=== PATIENT | female | born 1975 | race Caucasian/White ===

== ENCOUNTER → 2017-07-10 | Outpatient (CLI) | payer OTHER ==
--- NOTE | 2017-07-10 15:49 | RAD ---
DATE: 07/10/2017 EXAM: DIGITAL DIAGNOSTIC RT HISTORY: Abnormality seen on outside mammogram COMPARISON: Outside mammogram from 05/28/2017 This study was interpreted with the benefit of Computerized Aided Detection (CAD). FINDINGS: MLO and CC spot compression views were obtained of the right breast. Breast Density: DENSE The breast Parenchyma is dense, which could reduce the sensitivity of mammography. Breast parenchyma level density D.. The skin and nipples are within normal limits. The spot compression images demonstrate 2 round jessie are seen in the upper outer quadrant of the right breast with well-circumscribed margin and central lucency. IMPRESSION: 2 round masses in the right breast as described above. These are most likely intraparenchymal lymph node. BI-RADS CATEGORY: 2 BENIGN FINDING(S) RECOMMENDED FOLLOW-UP: 12M 12 MONTH FOLLOW-UP PQRS compliance statement: Patient information was entered into a reminder system with a target due date 07/10/2018 for the next mammogram. Mammography is a sensitive method for finding small breast cancers, but it does not detect them all and is not a substitute for careful clinical examination. A negative mammogram does not negate a clinically suspicious finding and should not result in delay in biopsying a clinically suspicious abnormality. "Our facility is accredited by the [employer] Mammography Program."
--- NOTE | 2017-07-10 15:49 | RAD ---
Ultrasound right breast Indication: Abnormality seen on outside screening mammogram Technique: Grayscale and color Doppler ultrasound images of the upper outer quadrant of the right breast obtained. Comparison: Similar diagnostic mammogram Findings: There is a 0.5 x 0.4 x 0.5 cm lymph node at 10:00 position approximately 7 cm from the nipple. There is 0.6 x 0.5 x 0.3 cm lymph node at 10:00 position approximately 9 cm from the nipple. These corresponds to nodular densities seen on the outside screening mammogram and also on the same day diagnostic mammogram. No other solid or cystic lesion seen in the interrogated right upper outer quadrant. The skin is within normal limits. Impression: Diffusely seen nodular densities on the outside screening mammogram in the right breast are compatible with interparenchymal lymph nodes. BI-RADS 2: Benign findings.
== END | disposition home or self-care (01) ==
LOC: MAMMO 06-21 10:04
PROVIDERS: ATTEND Nurse Practitioner Family
DX: N63.11 Unspecified lump in the right breast, upper outer quadrant (principal)
CPT/HCPCS: 76641; G0206; 77065

== ENCOUNTER 2018-05-22 06:25 | Emergency (ER) | payer OTHER ==
[~2018-05-22] VITALS: Ht 162.6 cm; Wt 75.3 kg
--- NOTE | 2018-05-22 06:36 | PHYS DOC ---
Past History Past Medical History: No Pertinent History Past Surgical History: Hysterectomy (BSO), Tonsillectomy Smoking: Non-smoker Adult General Chief Complaint Chief Complaint: FLANK PAIN HPI HPI Patient is a pleasant 42-year-old female presents to the emergency performed evaluation of sudden onset right flank pain, radiating to the right groin, which began at about 5:30 AM this morning. She has had some nausea but no vomiting. She has not noticed any hematuria or dysuria. She has not had any fevers or chills. The pain is described as an intense achy pain. There are no alleviating or exacerbating factors to the patient's symptoms. Review of Systems Review of Systems Constitutional: Denies fever or chills [] Eyes: Denies change in visual acuity, redness, or eye pain [] HENT: Denies nasal congestion or sore throat [] Respiratory: Denies cough or shortness of breath [] Cardiovascular:The patient denies any shortness of breath, chest pain, palpitations, or orthopnea, [] GI: Denies vomiting, bloody stools or diarrhea [] : Denies dysuria or hematuria [] Musculoskeletal: Denies back pain or joint pain, other than right flank pain [] Integument: Denies rash or skin lesions [] Neurologic: Denies headache, focal weakness or sensory changes [] Endocrine: Denies polyuria or polydipsia [] All other systems were reviewed and found to be within normal limits, except as documented in this note. Current Medications Current Medications Current Medications Medications (Trade) Dose Ordered Sig/Tra Start Time Stop Time Status Last Admin Dose Admin Ondansetron HCl (Zofran) 4 mg 1X ONCE 05/22/18 06:45 05/22/18 06:46 UNV Sodium Chloride 1,000 ml @ 1,000 mls/hr Q1H 05/22/18 06:31 05/22/18 07:30 UNV Allergies Allergies Allergies Coded Allergies Type Severity Reaction Last Updated Verified latex Allergy Intermediate 05/22/18 Yes Physical Exam Physical Exam PHYSICAL EXAM: CONSTITUTIONAL: Well developed, well nourished HEAD: normocephalic, atraumatic EENT: PERRL, EOMI. Conjunctivae normal color, sclerae non-icteric; moist mucous membranes. NECK: Supple, non-tender; no meningismus. LUNGS: Lungs CTA, breathing even and unlabored. Normal air movement. HEART: Regular rate and rhythm, no murmur CHEST: No deformity; non-tender ABDOMEN: The abdomen is soft, there is mild diffuse tenderness to palpation in the right lower abdomen, without rebound or guarding, the remainder the abdomen is soft and non-tender, no masses or bruits. EXTREM: Normal ROM; no deformity, no calf tenderness. Normal pulses palpable in all extremities. There is no pedal edema. SKIN: No rash; no diaphoresis NEURO: Alert; normal speech and cognition; CN's grossly intact; strength grossly intact without focal deficit. BACK: There is moderate right-sided CVA TTP.There is no bony tenderness to palpation of the thoracic or lumbar spine. Current Patient Data Lab Results Laboratory Tests Test 05/22/18 06:23 05/22/18 06:25 Urine Collection Type Unknown Urine Color Yellow Urine Clarity Hazy Urine pH 5.0 Urine Specific [place] 1.025 Urine Protein Neg Urine Glucose (UA) Neg mg/dL Urine Ketones (Stick) Neg mg/dL Urine Blood Neg Urine Nitrite Neg Urine Bilirubin Neg Urine Urobilinogen Dipstick 0.2 mg/dL Urine Leukocyte Esterase Neg Urine RBC 0 /HPF Urine WBC Rare /HPF Urine Squamous Epithelial Cells Many /LPF Urine Bacteria Many /HPF Urine Mucus Slight /LPF White Blood Count 6.4 x10^3/uL Red Blood Count 4.66 x10^6/uL Hemoglobin 13.9 g/dL Hematocrit 39.8 % Mean Corpuscular Volume 85 fL Mean Corpuscular Hemoglobin 30 pg Mean Corpuscular Hemoglobin Concent 35 g/dL Red Cell Distribution Width 12.4 % Platelet Count 230 x10^3/uL Neutrophils (%) (Auto) 45 % Lymphocytes (%) (Auto) 46 % Monocytes (%) (Auto) 8 % Eosinophils (%) (Auto) 1 % Basophils (%) (Auto) 1 % Neutrophils # (Auto) 2.8 x10^3uL Lymphocytes # (Auto) 2.9 x10^3/uL Monocytes # (Auto) 0.5 x10^3/uL Eosinophils # (Auto) 0.1 x10^3/uL Basophils # (Auto) 0.1 x10^3/uL Sodium Level 139 mmol/L Potassium Level 3.4 mmol/L Chloride Level 104 mmol/L Carbon Dioxide Level 27 mmol/L Anion Gap 8 Blood Urea Nitrogen 14 mg/dL Creatinine 0.9 mg/dL Estimated GFR (Cockcroft-Gault) 68.7 BUN/Creatinine Ratio 16 Glucose Level 140 mg/dL Calcium Level 8.3 mg/dL Total Bilirubin 0.3 mg/dL Aspartate Amino Transf (AST/SGOT) 19 U/L Alanine Aminotransferase (ALT/SGPT) 29 U/L Alkaline Phosphatase 80 U/L Total Protein 7.0 g/dL Albumin 3.3 g/dL Albumin/Globulin Ratio 0.9 Lipase 169 U/L Current Medications Medications (Trade) Dose Ordered Sig/Tra Route PRN Reason Start Time Stop Time Status Last Admin Dose Admin Sodium Chloride 1,000 ml @ 1,000 mls/hr Q1H IV 05/22/18 07:00 05/22/18 07:59 05/22/18 06:42 Ondansetron HCl (Zofran) 4 mg 1X ONCE IV 05/22/18 07:00 05/22/18 07:01 DC 05/22/18 06:40 Ketorolac Tromethamine (Toradol 30mg Vial) 30 mg 1X ONCE IV 05/22/18 07:00 05/22/18 07:01 DC 05/22/18 06:39 Hydromorphone HCl (Dilaudid) 1 mg 1X ONCE IV 05/22/18 07:00 05/22/18 07:01 DC 05/22/18 06:41 EKG EKG [] Radiology/Procedures Radiology/Procedures [PROCEDURE: CT ABDOMEN PELVIS WO CONTRAST Examination: CT ABDOMEN PELVIS WO CONTRAST History: SEVERE RIGHT FLANK PAIN ONSET THIS MORNING Comparison/Correlation: None Findings: Axial images of the abdomen and pelvis were obtained without contrast. Sagittal and coronal reformatted images were provided. Visualized lung bases are clear. Diffuse fatty infiltration of the liver is present. Spleen is normal. Pancreas is unremarkable. Right hydronephrosis and hydroureter are identified measuring up to 0.4 cm diameter. Left collecting system is unremarkable. No enlarged abdominal or pelvic lymph nodes. No ascites or pelvic free fluid. Moderate quantity of stool is present in the colon. Urinary bladder is mostly decompressed. Bilateral L5 pars interarticularis fractures are present and chronic in appearance. No malalignment. Impression: There is a 0.4 cm diameter ureterovesical junction calculus with associated obstruction. Fatty infiltration liver. Bilateral pars interarticularis fractures are chronic.] Course & Med Decision Making Course & Med Decision Making Pertinent Labs and Imaging studies reviewed. (See chart for details) [8:00 AM: The patient's condition remains stable. Her pain is improved at this time. I discussed test results with the patient, the need for close follow-up, and return precautions.] Shahriar Disclaimer Dragon Disclaimer This electronic medical record was generated, in whole or in part, using a voice recognition dictation system. Departure Departure: Impression: Primary Impression: Kidney stone Disposition: 01 HOME, SELF-CARE Condition: STABLE Referrals: NOBLE RIDDLE DO (PCP) Patient Instructions: Diet for Kidney Stones, Kidney Stones Additional Instructions: Ibuprofen 400-600 mg every 6 hours as needed for pain. Use the prescribed pain medication as needed for pain not controlled by ibuprofen.The prescribed medication may cause drowsiness. Use caution while taking. Strain your urine. If you find a kidney stone, bring it to your urology follow- up appointment, as this may help the urologist to determine what is causing the stone what you might be able to do to prevent this from happening in the future. Call [phone] to schedule a follow-up appointment with urology. Scripts Ondansetron (ZOFRAN ODT) 4 Mg Tab.rapdis 1 TAB SL Q4H PRN for NAUSEA, #15 TAB Prov: HALINA AGUIRRE MD 05/22/18 Oxycodone Hcl/Acetaminophen (PERCOCET 5-325 MG TABLET) 1 Each Tablet 1-2 TAB PO Q4-6HRS, #20 TAB Prov: HALINA AGUIRRE MD 05/22/18 Tamsulosin Hcl (FLOMAX) 0.4 Mg Cap.er.24h 1 CAP PO DAILY, #20 CAP 0 Refills Prov: HALINA AGUIRRE MD 05/22/18 HALINA AGUIRRE MD May 22, 2018 06:36
[2018-05-22 06:44] LABS: BASO # 0.1 x10^3/uL (0.0-0.2); BASO % 1 % (0-3); EOS # 0.1 x10^3/uL (0.0-0.7); EOS % 1 % (0-3); HEMATOCRIT 39.8 % (36.0-47.0); HEMOGLOBIN 13.9 g/dL (12.0-15.5); LYMPH # 2.9 x10^3/uL (1.0-4.8); LYMPH % 46 % (24-48); MEAN CORPUSCULAR HEMOGLOBIN 30 pg (25-35); MEAN CORPUSCULAR HGB CONC 35 g/dL (31-37); MEAN CORPUSCULAR VOLUME 85 fL (79-100); MONO # 0.5 x10^3/uL (0.0-1.1); MONO % 8 % (0-9); NEUT # 2.8 x10^3uL (1.8-7.7); NEUT % 45 % (31-73); PLATELET COUNT 230 x10^3/uL (140-400); RED BLOOD COUNT 4.66 x10^6/uL (3.50-5.40); RED CELL DISTRIBUTION WIDTH 12.4 % (11.5-14.5); WHITE BLOOD COUNT 6.4 x10^3/uL (4.0-11.0)
[2018-05-22 06:53] LABS: BILIRUBIN,URINE NEG (NEG); CLARITY,URINE HAZY; COLOR,URINE YELLOW; GLUCOSE,URINE NEG (NEG)
[2018-05-22 06:54] LABS: BACTERIA,URINE MANY /HPF (0-FEW); NITRITE,URINE NEG (NEG); RBC,URINE 0 /HPF (0-2); SQUAMOUS EPITHELIAL CELL,UR MANY /LPF; UROBILINOGEN,URINE 0.2 mg/dL (0.2 mg/dL); WBC,URINE RARE /HPF (0-4)
[2018-05-22 06:55] LABS: ALBUMIN 3.3 g/dL (3.4-5.0); ALBUMIN/GLOBULIN RATIO 0.9 (1.0-1.7); CALCIUM 8.3 mg/dL (8.5-10.1); CREATININE 0.9 mg/dL (0.6-1.0); GFR 68.7; POTASSIUM 3.4 mmol/L (3.5-5.1); TOTAL BILIRUBIN 0.3 mg/dL (0.2-1.0)
[2018-05-22] MEDS ORDERED: ONDANSETRON PF 4 MG/2 ML VIAL. IV ONE (07:00)
[2018-05-22] MEDS ORDERED: IV NORMAL SALINE 1,000ML 1,000 ML IV SCH (07:00)
[2018-05-22] MEDS ORDERED: HYDROmorphone PF 1 MG/ML DISP.SYRIN IV ONE ×2 (07:00→08:10)
[2018-05-22] MEDS ORDERED: KETOROLAC 30 MG/ML VIAL. IV ONE (07:00)
--- NOTE | 2018-05-22 07:43 | RAD ---
Examination: CT ABDOMEN PELVIS WO CONTRAST History: SEVERE RIGHT FLANK PAIN ONSET THIS MORNING Comparison/Correlation: None Findings: Axial images of the abdomen and pelvis were obtained without contrast. Sagittal and coronal reformatted images were provided. Visualized lung bases are clear. Diffuse fatty infiltration of the liver is present. Spleen is normal. Pancreas is unremarkable. Right hydronephrosis and hydroureter are identified measuring up to 0.4 cm diameter. Left collecting system is unremarkable. No enlarged abdominal or pelvic lymph nodes. No ascites or pelvic free fluid. Moderate quantity of stool is present in the colon. Urinary bladder is mostly decompressed. Bilateral L5 pars interarticularis fractures are present and chronic in appearance. No malalignment. Impression: There is a 0.4 cm diameter ureterovesical junction calculus with associated obstruction. Fatty infiltration liver. Bilateral pars interarticularis fractures are chronic. Electronically signed by: Chacho Kc MD (05/22/2018 7:40 AM) [facility]
[2018-05-22] MEDS ORDERED: OXYC-323 PO (08:00)
[2018-05-22] MEDS ORDERED: TAMS0.4C97 PO (08:00)
[2018-05-22] MEDS ORDERED: ONDA4TAB10 SL (08:00)
[2018-05-22] MEDS ORDERED: TAMSULOSIN 0.4 MG CAP.ER.24H. PO ONE (08:30)
[2018-05-22 09:15] VITALS: BP 108/72
== END 2018-05-22 09:25 | disposition home or self-care (01) ==
LOC: ER 06:25
DX: N13.2 Hydronephrosis with renal and ureteral calculous obstruction (principal); K76.0 Fatty (change of) liver, not elsewhere classified; Z90.710 Acquired absence of both cervix and uterus; Z91.040 Latex allergy status
CPT/HCPCS: 36415; 74176; 80053; 81001; 83690; 85025; 87086; 96374; 96375; 96376; 99285; J1170; J1885; J2405; J7030

== ENCOUNTER 2018-10-05 11:16 | Emergency (ER) | payer OTHER ==
[~2018-10-05] VITALS: Ht 162.6 cm; Wt 74.7 kg
[2018-10-05 11:16] VITALS: BP 131/89
[~2018-10-05 11:16] MED LIST: ONDA4TAB10 SL; OXYC1TAB15 PO; TAMS0.4C97 PO
[2018-10-05] MEDS ORDERED: PRED-220 PO (12:49)
[2018-10-05] MEDS ORDERED: CYCL-331 PO (12:49)
--- NOTE | 2018-10-05 12:50 | PHYS DOC ---
Past History Past Medical History: Kidney Stones Past Surgical History: Hysterectomy, Tonsillectomy Smoking: Non-smoker Alcohol Use: None Drug Use: None Adult General Chief Complaint Chief Complaint: BACK PAIN OR INJURY HPI HPI 42-year-old female presents with left shoulder pain. 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 It hurt her the rest of the shift that she thought it would just get better on its own. The patient had some pain is morning but thought she could go to work. She then additionally fell in the parking lot at work and leeanne her left shoulder again. She did not land on the shoulder. She was working today pushing around the cart the patient just became too difficult and she left work to come here for evaluation. The patient's pain is mostly in the left trapezius and the supraspinatus distribution. Patient did take 500 mg naproxen at home with minimal relief. She denies any other injuries or complaints. Review of Systems Review of Systems Constitutional: Denies fever or chills [] Eyes: Denies change in visual acuity, redness, or eye pain [] HENT: Denies nasal congestion or sore throat [] Respiratory: Denies cough or shortness of breath [] Cardiovascular: No additional information not addressed in HPI [] GI: Denies abdominal pain, nausea, vomiting, bloody stools or diarrhea [] : Denies dysuria or hematuria [] Musculoskeletal: Shoulder pain[] Integument: Denies rash or skin lesions [] Neurologic: Denies headache, focal weakness or sensory changes [] Endocrine: Denies polyuria or polydipsia [] All other systems were reviewed and found to be within normal limits, except as documented in this note. Allergies Allergies Allergies Coded Allergies Type Severity Reaction Last Updated Verified latex Allergy Intermediate 05/22/18 Yes Physical Exam Physical Exam Constitutional: Well developed, well nourished, no acute distress, non-toxic appearance. [] HENT: Normocephalic, atraumatic, bilateral external ears normal, oropharynx moist, no oral exudates, nose normal. [] Eyes: PERRLA, EOMI, conjunctiva normal, no discharge. [] Neck: Normal range of motion, no tenderness, supple, no stridor. [] Cardiovascular:Heart rate regular rhythm, no murmur [] Lungs & Thorax: Bilateral breath sounds clear to auscultation [] Abdomen: Bowel sounds normal, soft, no tenderness, no masses, no pulsatile masses. [] Skin: Warm, dry, no erythema, no rash. [] Back: No tenderness, no CVA tenderness. [] Extremities: Patient has tenderness along the distribution of the left trapezius. Shoulder range of motion is normal though slightly guarded. No deformity or dislocation seen.[] Neurologic: Alert and oriented X 3, normal motor function, normal sensory function, no focal deficits noted. [] Psychologic: Affect normal, judgement normal, mood normal. [] Current Patient Data Vital Signs Vital Signs Date Time Temp Pulse Resp B/P (MAP) Pulse Ox O2 Delivery O2 Flow Rate FiO2 10/05/18 11:16 97.4 77 16 100 Room Air EKG EKG [] Radiology/Procedures Radiology/Procedures [] Course & Med Decision Making Course & Med Decision Making Pertinent Labs and Imaging studies reviewed. (See chart for details) I believe the patient has a strain of her left shoulder. I will place her on prednisone for 3 days and also a muscle relaxer. Her work has requested a urinalysis for drug testing. We will order this. Patient is stable for discharge at this time [] Dragon Disclaimer Dragon Disclaimer This electronic medical record was generated, in whole or in part, using a voice recognition dictation system. Departure Departure: Impression: Primary Impression: Left shoulder strain Disposition: HOME, SELF-CARE Condition: STABLE Referrals: NOBLE RIDDLE DO (PCP) Patient Instructions: Shoulder Pain, [id number] Scripts Cyclobenzaprine Hcl (CYCLOBENZAPRINE HCL) 10 Mg Tablet 1 TAB PO TID PRN for MUSCLE SPASMS, #30 TAB Prov: KATT FERNANDEZ DO 10/05/18 Prednisone (PREDNISONE) 10 Mg Tablet 50 MG PO DAILY for inflammation for 3 Days, #15 TAB Prov: KATT FERNANDEZ DO 10/05/18 Problem Qualifiers Primary Impression: Left shoulder strain Encounter type: initial encounter Qualified Codes: S46.912A - Strain of unspecified muscle, fascia and tendon at shoulder and upper arm level, left arm , initial encounter KATT FERNANDEZ DO Oct 05, 2018 12:50
[2018-10-05 13:23] LABS: BARBITURATES NEG (NEG); BENZODIAZEPINES NEG (NEG); CANNABINOIDS NEG (NEG); COCAINE NEG (NEG); METHADONE NEG (NEG); OPIATES NEG (NEG); PHENCYCLIDINE NEG (NEG)
[2018-10-05 13:24] LABS: AMPHETAMINE/METHAMPHETAMINE NEG (NEG)
== END 2018-10-05 13:09 | disposition home or self-care (01) ==
LOC: ER 11:16
DX: S46.912A Strain of unspecified muscle, fascia and tendon at shoulder and upper arm level, left arm, initial encounter (principal); Z87.442 Personal history of urinary calculi; Z91.040 Latex allergy status; W18.39XA Other fall on same level, initial encounter; Y93.89 Activity, other specified; Y92.481 Parking lot as the place of occurrence of the external cause; Y99.0 Civilian activity done for income or pay
CPT/HCPCS: 36415; 80307; 99283

== ENCOUNTER → 2021-12-12 | Outpatient (CLI) | payer OTHER ==
[~2021-12-12] MED LIST changes: +CYCL10TA19 PO; +PRED-220 PO
--- NOTE | 2021-12-12 15:18 | RAD ---
Exam: CT of abdomen and pelvis without contrast INDICATION: Fever, hematuria TECHNIQUE: Sequential axial images through the abdomen and pelvis obtained without IV contrast. Sagit cleopatra and coronal reformatted images were reconstructed from the axial data and reviewed. Exposure: One or more of the following in the visualized dose reduction techniques were utilized for this examination: 1. Automated exposure control 2. Adjustment of the MA and/or KV according to patient size 3. Use of iterative of reconstructive technique Comparisons: 05/22/2018 FINDINGS: Heart size is normal. No pericardial effusion. Visualized lung bases are clear. No pleural effusion. Diffuse hepatic steatosis. Spleen, pancreas, and adrenals are unremarkable. Bladder is decompressed. No perinephric inflammation or hydronephrosis. No renal or ureteral calculi are identified. Bladder is partially distended and not well evaluated. Uterus is absent. No abnormal adnexal mass. Moderate amount of stool in the colon. Appendix is normal. No free intra-abdominal air or fluid. Abdominal aorta has a normal course and caliber. No enlarged intra-abdominal lymph nodes are identified. No suspicious osseous lesions or acute fractures. IMPRESSION: 1. No renal or ureteral calculi. No evidence for obstructive uropathy. 2. Diffuse hepatic steatosis. Electronically signed by: Lance Conrad MD (12/12/2021 3:16 PM) [facility]
== END ==
LOC: CT 14:44
PROVIDERS: ATTEND Family Medicine Sports Medicine
DX: K76.0 Fatty (change of) liver, not elsewhere classified (principal); N32.89 Other specified disorders of bladder
CPT/HCPCS: 74176